=== PATIENT | male | born 1930 ===

== ENCOUNTER 2017-10-21 18:19 | Emergency (ER) | payer OTHER ==
[~2017-10-21] VITALS: Ht 172.7 cm; Wt 65.8 kg
[2017-10-21] MEDS ORDERED: METOPROLOL SUCC25 MG (18:28)
[2017-10-21] MEDS ORDERED: COUMADIN2 MG (18:28)
[2017-10-21] MEDS ORDERED: AVAPRO150 MG (18:28)
== END 2017-10-21 22:21 | disposition home or self-care (01) ==
LOC: ER 18:19
DX: S20.222A Contusion of left back wall of thorax, initial encounter (principal); S20.221A Contusion of right back wall of thorax, initial encounter; S39.82XA Other specified injuries of lower back, initial encounter; R06.02 Shortness of breath; W18.09XA Striking against other object with subsequent fall, initial encounter; Y93.89 Activity, other specified; Y92.488 Other paved roadways as the place of occurrence of the external cause; Y99.8 Other external cause status